=== PATIENT | female | born 1945 | race Caucasian/White ===

== ENCOUNTER 2022-06-16 14:03 | Emergency (ER) | payer OTHER ==
[~2022-06-16] VITALS: Ht 157.5 cm; Wt 68.0 kg
== END 2022-06-16 18:16 ==
LOC: ER 14:17
DX: Z43.1 Encounter for attention to gastrostomy (principal); I69.320 Aphasia following cerebral infarction
CPT/HCPCS: 99283

== ENCOUNTER 2022-07-22 16:58 | Inpatient (IN) | payer OTHER ==
[~2022-07-22] VITALS: Ht 154.9 cm; Wt 54.6 kg
[2022-07-22 17:33] LABS: BASOPHILS % 0.2 % (0.0-1.0); EOSINOPHILS % 0.2 % (0.0-6.0); HEMATOCRIT 27.5 % (34.2-44.1); HEMOGLOBIN 8.5 g/dL (12.0-16.0); LYMPHOCYTES # (AUTO) 2.7 (1.0-3.2); LYMPHOCYTES % 16.4 % (18.0-39.1); MEAN CORPUSCULAR HEMOGLOBIN 26.6 pg (28-32); MEAN CORPUSCULAR HGB CONC 30.9 g/dL (31-35); MEAN CORPUSCULAR VOLUME 86.2 fL (81-99); MONOCYTES # (AUTO) 1.4 (0.2-0.8); MONOCYTES % 8.5 % (4.4-11.3); NEUTROPHILS # (AUTO) 12.2 (2.1-6.9); NEUTROPHILS % 74.1 % (38.7-80.0); PLATELET COUNT 434 x10e3/uL (140-360); RED BLOOD COUNT 3.19 x10e6/uL (3.6-5.1); RED CELL DISTRIBUTION WIDTH 15.9 % (11.7-14.4)
[2022-07-22 17:53] LABS: ALBUMIN 2.2 g/dL (3.5-5.0); ALBUMIN/GLOBULIN RATIO 0.4 (0.8-2.0); CALCIUM 9.4 mg/dL (8.4-10.2); CREATININE, SERUM 0.57 mg/dL (0.57-1.11)
[2022-07-22 18:00] LABS: INR 1.1; PROTHROMBIN TIME 14.7 seconds (11.9-14.5)
[2022-07-22] MEDS ORDERED: SODIUM CHLORIDE 0.9% 1000ML 1,000 ML IV SCH (18:00)
[2022-07-22 18:01] LABS: PARTIAL THROMBOPLASTIN TIME 34.1 seconds (23.8-35.5)
[2022-07-22 18:14] LABS: CREATINE KINASE < 7 IU/L (29-168)
[2022-07-22] MEDS ORDERED: IOPAMIDOL 370 MG/ML 100 ML INFUS..BTL INJ ONE ×2 (18:14→22:30)
[2022-07-22] MEDS: LEVOFLOXACIN 750MG/D5W 150ML 150 ML IV SCH (19:24)
[2022-07-22 19:48] LABS: CLARITY,URINE SL CLOUDY (CLEAR); COLOR,URINE YELLOW (YELLOW); LEUKOCYTE ESTERASE ,URINE TRACE (NEGATIVE)
[2022-07-22 19:49] LABS: KETONES,URINE NEGATIVE (NEGATIVE); NITRITE,URINE NEGATIVE (NEGATIVE); PROTEIN,URINE DIPSTICK 2+ (NEGATIVE); URINE UROBILINOGEN 0.2 mg/dL (0.2 - 1)
[2022-07-22 20:01] LABS: RBC,URINE 21-50 /HPF (0-5)
[2022-07-22 20:02] LABS: BACTERIA,URINE MODERATE /HPF
[2022-07-22] MEDS: ONDANSETRON HCL INJ 2MG/ML 2ML 2 MG/ML VIAL IV PRN (21:27)
[2022-07-22] MEDS: Morphine 4mg INJECTION 4 MG/ML INJ IV PRN (21:28)
[2022-07-22 23:25] VITALS: BP 126/59
[2022-07-22 23:48] VITALS: BP 126/59
[2022-07-23] VITALS (7 sets, daily range): BP systolic 126–159; BP diastolic 53–63
[2022-07-23] MEDS ORDERED: SODIUM CHLORIDE 0.9% 250ML 0 ML ONE (00:01)
[2022-07-23] MEDS: LACTATED RINGER'S 1,000 ML INJ SCH ×2 (00:27→14:52)
[2022-07-23] MEDS: Morphine 4mg INJECTION 4 MG/ML INJ IV PRN ×4 (05:15→20:44)
[2022-07-23] MEDS: ONDANSETRON HCL INJ 2MG/ML 2ML 2 MG/ML VIAL IV PRN ×2 (05:15→15:12)
[2022-07-23 05:29] LABS: ALBUMIN 1.9 g/dL (3.5-5.0); ALBUMIN/GLOBULIN RATIO 0.4 (0.8-2.0); ANION GAP 14.1 mmol/L (8-16); CALCIUM 9.3 mg/dL (8.4-10.2); CREATININE, SERUM 0.53 mg/dL (0.57-1.11); POTASSIUM 4.1 mmol/L (3.5-5.1)
[2022-07-23 05:31] LABS: BASOPHILS % 0.3 % (0.0-1.0); EOSINOPHILS # (AUTO) 0.1 (0.0-0.4); EOSINOPHILS % 0.5 % (0.0-6.0); HEMATOCRIT 25.3 % (34.2-44.1); HEMOGLOBIN 7.6 g/dL (12.0-16.0); LYMPHOCYTES # (AUTO) 2.2 (1.0-3.2); LYMPHOCYTES % 15.4 % (18.0-39.1); MEAN CORPUSCULAR HEMOGLOBIN 26.9 pg (28-32); MEAN CORPUSCULAR VOLUME 89.4 fL (81-99); MONOCYTES # (AUTO) 1.5 (0.2-0.8); MONOCYTES % 10.5 % (4.4-11.3); NEUTROPHILS # (AUTO) 10.5 (2.1-6.9); NEUTROPHILS % 72.5 % (38.7-80.0); PLATELET COUNT 357 x10e3/uL (140-360); RED BLOOD COUNT 2.83 x10e6/uL (3.6-5.1)
[2022-07-23 06:18] LABS: CREATINE KINASE 19 IU/L (29-168)
[2022-07-23] MEDS ORDERED: DOCUSATE SODIU100 MG PEG (06:18)
[2022-07-23] MEDS ORDERED: NEURONTIN100 MG PEG (06:18)
[2022-07-23] MEDS ORDERED: TYLENOL325 MG PEG (06:18)
[2022-07-23] MEDS ORDERED: MS CONTIN15 MG PEG (06:18)
[2022-07-23] MEDS ORDERED: FAMOTIDINE20 MG PEG (06:18)
[2022-07-23] MEDS ORDERED: METHOCARBAMOL750 MG PEG (06:18)
[2022-07-23] MEDS ORDERED: SUCRALFATE1 GM PEG (06:18)
[2022-07-23] MEDS ORDERED: SIMETHICONE80 MG PEG (06:18)
[2022-07-23] MEDS ORDERED: CALCIUM CARBON500 MG PEG (06:18)
[2022-07-23] MEDS ORDERED: QUESTRAN PACKET4 GM PEG (06:18)
[2022-07-23] MEDS ORDERED: ONDANSETRON ODT4 MG PEG (06:18)
[2022-07-23] MEDS ORDERED: DOXAZOSIN MESYLA2 MG PEG (06:18)
[2022-07-23] MEDS ORDERED: ROPINIROLE HCL1 MG PEG (06:18)
[2022-07-23] MEDS ORDERED: SERTRALINE HCL50 MG PEG (06:18)
[2022-07-23 10:43] LABS: % IRON SATURATION 11 % (15-50); IRON 21 ug/dL (50-170); TOTAL IRON BINDING CAPACITY 199 ug/dL (261-478); TRANSFERRIN 142 mg/dL (180-382)
[2022-07-23] MEDS ORDERED: CHOLESTYRAMINE 4 GM PACKET PEG PRN (11:30)
[2022-07-23] MEDS ORDERED: ONDANSETRON HCL 4 MG ORAL DISINTEGRATING TAB PEG PRN (11:30)
[2022-07-23] MEDS: MORPHINE SULFATE ER 15 MG TAB PO SCH ×2 (12:00→18:02)
[2022-07-23] MEDS: SUCRALFATE 1 GM/10 ML SUSP PEG SCH ×2 (12:00→18:02)
[2022-07-23] MEDS ORDERED: ACETAMINOPHEN 325 MG/10 ML UDC PEG PRN (12:00)
[2022-07-23] MEDS ORDERED: SODIUM CHLORIDE 0.9% 250ML 250 ML ONE ×2 (13:12→13:37)
[2022-07-23] MEDS ORDERED: LIDOCAINE HCL 1% LOCAL INJ 20 ML VIAL ONE (13:12)
[2022-07-23] MEDS ORDERED: IOPAMIDOL 370 MG/ML 100 ML INFUS..BTL INJ ONE (13:12)
[2022-07-23] MEDS ORDERED: CEFTRIAXONE 1 GM VIAL ONE (13:36)
[2022-07-23] MEDS ORDERED: MIDAZOLAM HCL 2 MG/2 ML VIAL ONE (13:36)
[2022-07-23] MEDS ORDERED: FENTANYL CITRATE/PF 100MCG/2 ML INJ ONE (13:36)
[2022-07-23] MEDS: METHOCARBAMOL 500 MG TAB PEG SCH ×2 (14:00→20:44)
[2022-07-23] MEDS: GABAPENTIN 100 MG CAP PEG SCH ×2 (15:12→20:44)
[2022-07-23] MEDS: LEVOFLOXACIN 750MG/D5W 150ML 150 ML IV SCH (15:30)
[2022-07-23 17:24] LABS: CREATINE KINASE 7 IU/L (29-168)
[2022-07-24] VITALS (7 sets, daily range): BP systolic 97–113; BP diastolic 44–52
[2022-07-24] MEDS: MORPHINE SULFATE ER 15 MG TAB PO SCH ×4 (00:18→18:00)
[2022-07-24] MEDS: SUCRALFATE 1 GM/10 ML SUSP PEG SCH ×4 (00:18→14:45)
[2022-07-24] MEDS: Morphine 4mg INJECTION 4 MG/ML INJ IV PRN ×4 (02:15→18:49)
[2022-07-24] MEDS: LACTATED RINGER'S 1,000 ML INJ SCH ×2 (04:14→17:46)
[2022-07-24] MEDS: METHOCARBAMOL 500 MG TAB PEG SCH ×2 (05:16→14:45)
[2022-07-24 06:41] LABS: BASOPHILS # (AUTO) 0.1 (0.0-0.1); BASOPHILS % 0.4 % (0.0-1.0); EOSINOPHILS % 0.3 % (0.0-6.0); HEMATOCRIT 24.7 % (34.2-44.1); HEMOGLOBIN 7.3 g/dL (12.0-16.0); LYMPHOCYTES # (AUTO) 2.1 (1.0-3.2); LYMPHOCYTES % 15.1 % (18.0-39.1); MEAN CORPUSCULAR HEMOGLOBIN 26.5 pg (28-32); MEAN CORPUSCULAR HGB CONC 29.6 g/dL (31-35); MEAN CORPUSCULAR VOLUME 89.8 fL (81-99); MONOCYTES # (AUTO) 1.2 (0.2-0.8); MONOCYTES % 8.9 % (4.4-11.3); NEUTROPHILS # (AUTO) 10.4 (2.1-6.9); NEUTROPHILS % 74.2 % (38.7-80.0); PLATELET COUNT 423 x10e3/uL (140-360); RED BLOOD COUNT 2.75 x10e6/uL (3.6-5.1); RED CELL DISTRIBUTION WIDTH 16.1 % (11.7-14.4)
[2022-07-24 07:35] LABS: ALBUMIN 1.8 g/dL (3.5-5.0); ALBUMIN/GLOBULIN RATIO 0.4 (0.8-2.0); ANION GAP 13.8 mmol/L (8-16); CALCIUM 9.2 mg/dL (8.4-10.2); CREATININE, SERUM 0.55 mg/dL (0.57-1.11); POTASSIUM 3.8 mmol/L (3.5-5.1)
[2022-07-24] MEDS ORDERED: IRON SUCROSE 100 MG in SODIUM CHLORIDE 0.9% 100 ML IV SCH (09:00)
[2022-07-24] MEDS ORDERED: DOCUSATE SODIUM LIQD 100 MG/10 ML UDC PEG SCH (09:00)
[2022-07-24] MEDS ORDERED: SERTRALINE HCL 50 MG TAB PEG SCH (09:00)
[2022-07-24] MEDS ORDERED: DOXAZOSIN MESYLATE 2 MG TAB PEG SCH (09:00)
[2022-07-24] MEDS ORDERED: FAMOTIDINE 20 MG TAB PEG SCH (09:00)
[2022-07-24] MEDS ORDERED: OYST-CAL-D 500MG TABLET PEG SCH (09:00)
[2022-07-24] MEDS: GABAPENTIN 100 MG CAP PEG SCH ×2 (09:46→14:45)
[2022-07-24] MEDS: LEVOFLOXACIN 750MG/D5W 150ML 150 ML IV SCH (17:46)
[2022-07-24] MEDS ORDERED: ROPINIROLE HCL 1 MG TAB PEG SCH (21:00)
== END 2022-07-24 19:12 | DRG 919 ==
LOC: ER 17:50 → ERHOLD 21:20 → MED/SURG2 23:13
PROVIDERS: ADMIT Internal Medicine; ATTEND Internal Medicine
PROC: 0F2BX0Z Change Drainage Device in Hepatobiliary Duct, External Approach (ICD-10-PCS; principal; 2022-07-23)
DX: T85.590A Other mechanical complication of bile duct prosthesis, initial encounter (principal); J69.0 Pneumonitis due to inhalation of food and vomit; K83.1 Obstruction of bile duct; N39.0 Urinary tract infection, site not specified; D64.9 Anemia, unspecified; G25.81 Restless legs syndrome; G47.00 Insomnia, unspecified; I69.321 Dysphasia following cerebral infarction; K21.9 Gastro-esophageal reflux disease without esophagitis; I73.9 Peripheral vascular disease, unspecified; I10 Essential (primary) hypertension; Z20.822 Contact with and (suspected) exposure to COVID-19
CPT/HCPCS: 36415; 47536; 51700; 71045; 74177; 74470; 80053; 81001; 82550; 82553; 82607; 82746; 83540; 83605; 84466; 84484; 85025; 85045; 85610; 85730; 87040; 93005; 94799; 96361; 99152; 99285; C1769; J0696; J1756; J2001; J2250; J2270; J2405; J7030; J7050; Q9967